=== PATIENT | male | born 1965 | race Caucasian/White ===

== ENCOUNTER 2018-11-27 16:56 | Observation (INO) ==
--- NOTE | 2018-11-27 17:48 | Emergency Department Note ---
Disposition Clinical Impression: Penile fracture Qualifiers: Encounter type: initial encounter Qualified Code(s): S39.840A - Fracture of corpus cavernosum penis, initial encounter Disposition: Admitted As Inpatient Condition: Good Forms: ED Satisfaction Letter Time of Disposition: 18:23 Male Urogenital HPI - General Chief complaint: ED Urogenital-Male Stated complaint: "Broken Penis" Time Seen by Provider: 11/27/18 17:36 Source: patient Limitations: no limitations Nursing Notes Reviewed: Yes Vital Signs Reviewed: Yes - History of Present Illness HPI Narrative: 53-year-old male presenting to emergency room for fractured penis. Patient states around 11:30 he was having intercourse when the penis Broke during sex. He presents to the ER now for evaluation. He had gone to as though [facility] to transfer him to [facility]. His brother works in the surgery department here and was able to speak to the urologist who thought they could take care of it here. He has no other complaints at this time. - Related Data Home Medications Medication Instructions Recorded Confirmed No Known Home Drugs 11/27/18 11/27/18 Allergies Allergy/AdvReac Type Severity Reaction Status Date / Time No Known Allergies Allergy Verified 11/27/18 17:53 Review of Systems: Gen.: No fevers or chills or new weakness Eyes: Denies double vision or any vision changes Ears: Denies any otalgia Pharynx: Denies sore throat CV: Denies chest pain. Denies palpitations Respiratory: Denies any cough or sputum production. No shortness of breath. GI: Denies any nausea, vomiting, diarrhea, constipation. Denies abdominal pain Neuro: Denies any headache. No problems with ambulation. No numbness. Skin: Denies any rashes or abrasions Psych: Denies any depression or suicidal or homicidal ideation Musculoskeletal: Denies any arthralgias or myalgias : Positive for penile pain Past Medical History - Past Medical History Medical history: Reports: no medical history Psychiatric history: Reports: no psych history - Social History Smoking Status: Never smoker Alcohol use: Reports: none Drug use: Reports: none Physical Exam - General Limitations: no limitations General appearance: alert, in no apparent distress - Head Head exam: atraumatic, normocephalic - Chest Chest inspection: Present: normal inspection - Respiratory Respiratory exam: Present: normal lung sounds bilaterally - Cardiovascular Cardiovascular exam: Present: regular rate, normal rhythm - Male exam: Present: other (Patient has a fractured penis. There is diffuse swelling and ecchymosis noted at the base of the penis. There is leftward displacement of the distal fragment of the penis. Skin is intact.) Course Vital Signs Temperature 97.9 F 11/27/18 17:02 Pulse Rate 67 11/27/18 17:02 Respiratory Rate 16 11/27/18 17:02 Blood Pressure 118/90 11/27/18 17:02 O2 Sat by Pulse Oximetry 97 11/27/18 17:02 Temperature 97.9 F 11/27/18 17:02 Pulse Rate 72 11/27/18 17:56 Respiratory Rate 16 11/27/18 17:02 Blood Pressure 114/85 11/27/18 17:56 O2 Sat by Pulse Oximetry 98 11/27/18 17:56 Oxygen Delivery Oxygen Delivery Room Air Urogenital-Male - MDM Narrative Medical decision making narrative: Dr. Dailey will take the patient to the operating room. I did speak with him.
[2018-11-27] MEDS ORDERED: Ondansetron 4 MG/2 ML VIAL IVP ONE (18:52)
[2018-11-27] MEDS ORDERED: *HR* Promethazine 25 MG/ML VIAL IVP PRN (18:52)
[2018-11-27] MEDS ORDERED: *HR* Meperidine 25 MG/ML SYRINGE IVP PRN (18:52)
[2018-11-27] MEDS ORDERED: *HR* HYDROmorphone (PF) 1 MG/ML SYRINGE IVP PRN (18:52)
--- NOTE | 2018-11-27 18:54 | Anesthesia Evaluation PreOp ---
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) HEAD OF PHYSICS History: Denies Any Significant HX Other Medical History: Denies Any Significant HX Anesthesia History: No Prior Anesthetic Complications, Past Anesthesia (pneumonectomy) Alcohol Use: none Drug use: none Medications and Allergies No Known Home Drugs 11/27/18 [History] Allergy/AdvReac Type Severity Reaction Status Date / Time No Known Allergies Allergy Verified 11/27/18 17:53 - Meds/Allergy Pre-op Review Medications Reviewed: Yes Allergies Reviewed: Yes Beta Blockers on Current Med List: No Anesthesia Exam Vital Signs/O2 Sat, Most Current Temp Pulse Resp BP Pulse Ox 97.9 F 72 16 114/85 98 11/27/18 17:02 11/27/18 17:56 11/27/18 17:02 11/27/18 17:56 11/27/18 17:56 Weight: 93kg NPO (# of Hours): >8 - HEENT Pupil (Motor): Pupils equal, EOMI Mallampati: III Teeth: Poor dentition (chipped upper and lower incisors, none loose) - HEAD OF PHYSICS LOC: Oriented HEAD OF PHYSICS Motor: Normal RUE, Normal LUE, Normal RLE, Normal LLE, Normal Face HEAD OF PHYSICS Sensory: Normal: RUE, LUE, RLE, LLE, Face - Cardiac Rhythm: Regular - Pulmonary Breath Sounds: bilateral Clear Respiratory Effort: Symmetrical Anesthesia Assess/Plan ASA Score: 2 Level of consciousness: Cooperative Anesthetic Plan: General Monitoring Plan: Standard Monitors Recovery Plan: PACU
[2018-11-27] MEDS ORDERED: Isovue-300 150 ML INFUS..BTL ONE (19:03)
[2018-11-27] MEDS ORDERED: Albuterol 2.5 MG/3 ML NEBULIZER IH ONE (19:15)
[2018-11-27] MEDS ORDERED: Acetaminophen IV 1,000 MG/100 ML INFUS..BTL ONE (19:20)
[2018-11-27] MEDS ORDERED: *HR* Rocuronium Bromide 50 MG/5 ML VIAL ONE (19:24)
[2018-11-27] MEDS ORDERED: Lidocaine HCL 4 ML Topical Solution (Laryng-O-Jet Kit Sterile Pak) TP ONE (19:24)
[2018-11-27] MEDS ORDERED: *HR* Midazolam HCl 2 MG/2 ML VIAL ONE (19:25)
[2018-11-27] MEDS ORDERED: *HR* FentaNYL (PF) 100 MCG/2 ML VIAL ONE (19:25)
[2018-11-27] MEDS ORDERED: *HR* Propofol 200 MG/20 ML VIAL IVP ONE (19:25)
[2018-11-27] MEDS ORDERED: Albuterol 2.5 MG/3 ML NEBULIZER ONE (19:25)
--- NOTE | 2018-11-27 19:42 | Urology History & Physical ---
Date of Encounter: 11/27/18 Time of Encounter: 19:39 Assessment and Plan (1) Penile fracture Current Visit: Yes Status: Acute History and exam consistent with penile fracture occurring earlier today at approximately 11:30 AM. Patient transfers and from outside facility due to lack of urology expertise. Discussed risks benefits alternatives of observation versus urgent/timely surgical repair including but not limited to erectile dysfunction, penile curvature, bleeding and infection. Further, complicated issues the patient has not voided since injury. He seen no bright red blood at the meatus. Discussed surgical address in detail. All questions answered. Patient wishes to proceed with surgical address. Plan: Surgical repair of traumatic rupture of the corporal cavernosa, cystoscopy. Qualifiers: Encounter type: initial encounter Qualified Code(s): S39.840A - Fracture of corpus cavernosum penis, initial encounter (2) Edema, penis Current Visit: Yes Status: Acute Edema, bruising and suspected hematoma secondary to traumatic injury. Suspect penile fracture. Discussed option for management. Plan: Intraoperative corporal cavernosogram. Repair of traumatic rupture of the corporal cavernosa if identified on corporal cavernosogram. (3) Penile pain Current Visit: Yes Status: Acute Fairly moderate pain despite physical appearance of the penis. Plan: Evaluation for penile fracture with potential repair as detailed above. When necessary pain meds. History of Present Illness Chief complaint: traumatic rupture of the corporal cavernosa (penile fracture) HPI: 53-year-old male presenting to emergency room for fractured penis. Patient states around 11:30 he was having intercourse when the penis Broke during sex. He presents to the ER now for evaluation. He had gone to [address] [place] [address]. who recommended transfer to [facility]. His brother works in the surgery department here and was able to speak to the urologist who thought they could take care of it here. He has no other complaints at this time. Patient denies past urologic interventions. Patient denies other sinus symptoms urologic disease. Has no baseline voiding difficulties, gross hematuria or erectile dysfunction. Patient has no prior history of stones. Patient reports current mild discomfort with significant swelling and bruising of the penis. He has not voided since presentation outside facility. Past Med Surg Social Fam HX - Past Medical History Medical history: no medical history Psychiatric history: no psych history - Past Surgical History Surgical History: tonsillectomy Additional surgical history: Partial pneumonectomy - Social History Smoking Status: Never smoker Alcohol use: none Drug use: none Medications and Allergies No Known Home Drugs 11/27/18 [History] Allergy/AdvReac Type Severity Reaction Status Date / Time No Known Allergies Allergy Verified 11/27/18 17:53 Review of Systems - Constitutional no chills, no fever(s) - EENT Nose, mouth and throat: no dizziness, no headache(s) - Cardiovascular no chest pain, no diaphoresis - Respiratory no cough, no dyspnea - Gastrointestinal no abdominal pain, no nausea - Genitourinary no flank pain, no testicular pain - Musculoskeletal no back pain, no muscle weakness - Integumentary no lesions, no rash - Neurological no confusion, no sensory deficit - Psychiatric no anxiety, no confusion - Hematologic/Lymphatic no easy bleeding, no easy bruising - Allergic/Immunologic no throat swelling, no wheezing Exam Initial Vital Signs Temp Pulse Resp BP Pulse Ox 97.9 F 67 16 118/90 97 11/27/18 17:02 11/27/18 17:02 11/27/18 17:02 11/27/18 17:02 11/27/18 17:02 - General physical appearance Present: well developed, well nourished, no distress - Eyes Present: PERRL, normal ocular movement. Absent: icteric - ENT Present: normal nares, normal mucosa - Neck Present: no masses, trachea midline - Respiratory Present: normal respiratory effort - Cardiovascular Cardiovascular exam IM: RRR - Abdomen Abdomen: Present: soft, non tender - Genitourinary testicles present scrotal mass/hydrocele: left (Left hydrocele) Penis: Present: edema, circumsized, other (Significant edema with bruising of the shaft. The bruising appears to have started more distally.) - Integumentary Present: no rash, no growths, no abnormal pigmentation - Neurologic Present: normal coordination. Absent: disoriented - Musculoskeletal Present: other - Additional Findings Normal posture. Moves all 4 extremities. Urology Results - Labs All other labs normal.
[2018-11-27] MEDS ORDERED: *HR* HYDROcodone/Acet 5/325 mg TABLET PO PRN (19:57)
[2018-11-27] MEDS ORDERED: Ibuprofen 400 MG TABLET PO PRN (19:57)
[2018-11-27] MEDS ORDERED: Acetaminophen 325 MG TABLET PO PRN (19:57)
[2018-11-27] MEDS ORDERED: *HR* OxyCODONE Immed Rel 5 MG TABLET PO PRN (19:57)
[2018-11-27] MEDS ORDERED: Naloxone 0.4 MG/ML INJ IVP PRN (19:57)
[2018-11-27] MEDS ORDERED: Ondansetron 4 MG/2 ML VIAL IVP PRN (19:57)
[2018-11-27] MEDS ORDERED: D5% in 0.45% NACL w KCl 20 MEQ/1,000 ML MLS IVC SCH (20:00)
--- NOTE | 2018-11-27 20:06 | Discharge Summary ---
Date of Encounter: 11/27/18 Time of Encounter: 20:07 - Discharge Diagnosis (1) Penile fracture Priority: Primary Status: Acute Qualifiers: Encounter type: initial encounter Qualified Code(s): S39.840A - Fracture of corpus cavernosum penis, initial encounter (2) Edema, penis Priority: Secondary Status: Acute (3) Penile pain Priority: Secondary Status: Acute - Hospital Course Hospital course: Mr. Bourne is a 53 year old male - Time Spent with Patient Total time spent providing and/or coordinating discharge services: - Discharge Medications Prescriptions: No Action No Known Home Drugs 1 each .ROUTE AD each Home Medications: Oxycodone HCl/Acetaminophen [Percocet 5-325 mg Tablet] 1 each PO Q4-6H PRN 4 Days #20 tablet 11/27/18 [Rx] cephALEXin [Keflex] 500 mg PO TID 5 Days #15 capsule 11/27/18 [Rx] Allergies/Adverse Reactions: Allergy/AdvReac Type Severity Reaction Status Date / Time No Known Allergies Allergy Verified 11/27/18 17:53 Date of admission: 11/27/18 18:45 Primary care physician: Mauri Keating CNP Exam Initial Vital Signs Temp Pulse Resp BP Pulse Ox 97.9 F 67 16 118/90 97 11/27/18 17:02 11/27/18 17:02 11/27/18 17:02 11/27/18 17:02 11/27/18 17:02 - General physical appearance Present: well developed, well nourished, no distress - Respiratory Present: normal respiratory effort - Neurologic Present: normal coordination. Absent: disoriented - Patient Status Disposition: Home, Self-Care Condition: Good Functional capacity at discharge: independent ambulation Overall status at discharge: patient is back to baseline - Discharge Instructions Follow Up With: Mauri Keating CNP [Primary Care Provider] - - Diet and Activity Activity: resume usual activities as tolerated Diet: advance to your usual diet
[2018-11-27] MEDS ORDERED: Bupivacaine-MPF 0.25% 10 ML VIAL ONE (20:23)
[2018-11-27] MEDS ORDERED: Lidocaine 1% 20 ML MDV ONE (20:23)
[2018-11-27] MEDS ORDERED: Dexamethasone 4 MG/ML VIAL ONE (20:58)
[2018-11-27] MEDS ORDERED: Ondansetron 4 MG/2 ML VIAL ONE (20:58)
--- NOTE | 2018-11-27 22:26 | Operative Note ---
Date of procedure: 11/27/18 Pre-op diagnosis: Traumatic rupture of the corpora cavernosum Post-op diagnosis: same Procedure: Cystoscopy, penile exploration with corporal cavernosal reconstruction of traumatic corporal cavernosal rupture (repair of fractured penis), injection for and interpretation of intraoperative corporal cavernosogram by surgeon to facilitate procedure Implants: none Complications: none Anesthesia: LALO Surgeon: Saman Dailey Was there an assistant corporate secretary present: No Estimated blood loss (cc): 30 Specimen: none Condition: stable Disposition: PACU Procedure in Detail: The patient brought the operating theater placed on table supine position. Is identified by name and administered a general anesthetic. The patient was left supine the prepped and draped in normal sterile fashion. Flexible cystoscopy was performed and show no urethral injury. A 21-gauge butterfly needle was placed at the base of penis and with injection of contrast solution a corporal cavernosal gram was performed this revealed some extravasation toward the base. Based on this finding penile aspiration for penile fracture was indicated. Circumference incision was made in the circumcision line. The dartos fascia was significantly edematous in the ventral aspect of the penis between 3 and 9:00. This increased level difficulty case extended time by at least 40%. With care dissection was made to the level of Barker's fascia. Due to significant inflammation was difficult to peel the Dartos proximally to degloved the penis. Thus, sharp dissection had to be performed. A large defect disrupting Barker's fascia was encountered at the left proximal ventral corpora immediately adjacent to the urethra this defect extended from the 6:30 position immediately adjacent to the urethra up to the 10:30 position dorsally. There is significant disruption to the underlying vascular tissue. This large defect was brought together with 12 interrupted 4-0 PDS sutures. Barker's fascia was reapproximated with interrupted 3-0 Vicryl sutures. The proximal distal shaft skin was brought together the quadrants with interrupted 3-0 Monocryl suture. Additional interrupted sutures were performed on the ventral aspect of the anastomosis bet ween 3 and 9:00 due to significant edema. The anastomosis above 3 and 9:00 dorsally was run with a 4-0 Monocryl. A Bioclusive dressing was placed and this ended the operative procedure. There are no complications.
--- NOTE | 2018-11-27 22:58 | Anesthesia Evaluation Post Op ---
Date of Encounter: 11/27/18 Time of Encounter: 22:58 - Vital Signs Vital Signs: Vital Signs/O2 Sat, Most Current Temp Pulse Resp BP Pulse Ox 98.8 F 73 12 142/98 94 11/27/18 22:27 11/27/18 22:47 11/27/18 22:47 11/27/18 22:47 11/27/18 22:47 - Lungs Lungs: Clear Ascult./Percussion - Airway Airway: Non-obstructed - Cardiovascular Regular Rate - Mental Status Mental Status: Alert & Oriented, Answers Appropriately - Pain Pain Scale: 0 Pain Scale used: Numeric (1 - 10) - Nausea Vomiting Nausea Vomiting: Not Present - Hydration Hydration: Ice chips - Discharge PostOp Status: Transfer Patient to floor
[2018-11-28 00:10] VITALS: BP 120/81
[2018-11-28] MEDS ORDERED: CeFAZolin Syr 3,000MG/30 ML 3,000 MG/30 ML SYRINGE IVPB SCH (04:00)
== END 2018-11-28 01:00 | disposition home or self-care (01) ==
LOC: 3ANU 16:56 → EMEROOARM 16:56 → 3ANU 18:53
PROVIDERS: ADMIT Urology; ATTEND Urology
PROC: [UNRECOGNIZED PROCEDURE] (2018-11-27 18:00)